=== PATIENT | female | born 1945 | race Caucasian/White ===

== ENCOUNTER → 2016-07-22 | Outpatient (RCR) | payer MEDICARE, OTHER ==
[~2016-07-22] MED LIST: ALEV220C2 PO; IBUP600T26 PO; MULTTAB PO; TYLE650T30 PO; VICO5TAB16 PO; XARE1TAB PO
== END ==
LOC: M PT 07-15 13:10
PROVIDERS: ATTEND Orthopaedic Surgery
DX: Z51.89 Encounter for other specified aftercare (principal); Z96.611 Presence of right artificial shoulder joint
CPT/HCPCS: 97110; 97140; 97161; G8984; G8985

== ENCOUNTER → 2016-08-19 | Outpatient (RCR) | payer MEDICARE, OTHER | LOC: M PT 07-24 14:18 | PROVIDERS: ATTEND Orthopaedic Surgery | DX: Z96.611 Presence of right artificial shoulder joint (principal) | CPT/HCPCS: 97110; 97140; G8984; G8985 ==

== ENCOUNTER 2016-09-18 15:15 | Outpatient (RCR) | payer MEDICARE, OTHER | END 2016-09-19 | LOC: M PT 15:15 | PROVIDERS: ATTEND Orthopaedic Surgery | DX: Z96.611 Presence of right artificial shoulder joint (principal) | CPT/HCPCS: 97110; 97140; G8981; G8982 ==

== ENCOUNTER → 2016-09-22 | Outpatient (REF) | payer MEDICARE, OTHER | LOC: M LAB REF 14:47 | PROVIDERS: ATTEND Nurse Practitioner Family | DX: L08.9 Local infection of the skin and subcutaneous tissue, unspecified (principal) ==

== ENCOUNTER 2016-10-16 13:45 | Outpatient (RCR) | payer MEDICARE, OTHER | END 2016-10-19 | disposition home or self-care (01) | LOC: M PT 13:45 | PROVIDERS: ATTEND Orthopaedic Surgery | DX: Z96.611 Presence of right artificial shoulder joint (principal) | CPT/HCPCS: 97110; 97140; G8984; G8985 ==

== ENCOUNTER 2016-11-11 10:00 | Outpatient (RCR) | payer MEDICARE, OTHER | END 2016-11-11 14:36 | disposition home or self-care (01) | LOC: M PT 10:00 | PROVIDERS: ATTEND Orthopaedic Surgery | DX: Z96.611 Presence of right artificial shoulder joint (principal); Z47.1 Aftercare following joint replacement surgery | CPT/HCPCS: 97110; G8985; G8986 ==

== ENCOUNTER → 2017-11-11 | Outpatient (CLI) | payer MEDICARE, OTHER | LOC: M RAD 09:34 | DX: Z12.31 Encounter for screening mammogram for malignant neoplasm of breast (principal) | CPT/HCPCS: 77067 ==

== ENCOUNTER → 2019-04-13 | Outpatient (CLI) | payer MEDICARE, OTHER ==
--- NOTE | 2019-04-13 11:43 | REP ---
Two-view chest: 04/13/2019. Indication: Cough. Comparison: 04/22/2012. Findings: The lungs are clear. There is no pleural effusion or pneumothorax. The cardiomediastinal silhouette is unremarkable. The patient has undergone right glenohumeral arthroplasty. Impression: Clear lungs. Electronically Signed by Eduard De DO 04/13/2019 11:35 A
== END ==
LOC: M RAD 10:46
PROVIDERS: ATTEND Otolaryngology
DX: R05 Cough (principal)

== ENCOUNTER → 2021-01-02 | Outpatient (CLI) | payer MEDICARE, OTHER ==
--- NOTE | 2021-01-02 16:32 | REPMRS ---
Patient History The patient states she has not had a clinical breast exam in over a year. Patient is postmenopausal and has history of skin cancer. Family history of colorectal cancer at age 50 or over in maternal grandfather, colorectal cancer at age 50 or over in maternal cousin, endometrial cancer at age 50 or over in maternal grandmother, endometrial cancer at age 50 or over in mother, breast cancer at age 50 or over in maternal aunt, breast cancer at age 69 in sister, breast cancer at age 49 in niece, colorectal cancer at age 36 in son. Took hormonal contraceptives for 7 years. Patient states no breast complaints today. Patient has signed MRS History Sheet. Digital Woman Screen Mammo: January 02, 2021 - Exam #: [id number] Bilateral CC and MLO view(s) were taken. Technologist: Emily Arguelles, Technologist Prior study comparison: November 08, 2018, bilateral digital woman screen mammo performed at [facility]. November 11, 2017, bilateral digital mammo screening bilat, performed at [facility]. FINDINGS: There are scattered fibroglandular densities. Screening. Digital screening (2D) mammography was performed bilaterally in the CC and MLO projections. Additionally, breast tomosynthesis (3D mammography) was performed bilaterally in the CC and MLO projections. Todays exam was compared to the prior exam/exams. By history, the patient has no complaints of a palpable breast abnormality or other significant breast complaints. The breasts are unchanged in size and shape. There are no víctor-soft tissue densities or spiculated masses. There is no internal architectural distortion. Once again, stable benign appearing calcifications are seen.There are no suspicious víctor-calcific clusters. Skin thickening or nipple retraction is not present. IMPRESSION: BI-RADS Category 2- Benign Findings. There is no evidence of malignant alteration of the breasts. Followup examination recommended in one year. The Volpara volumetric breast density category is B, there are scattered areas of fibroglandular densities. This mammogram was read with the assistance of [employer],an FDA approved computer aided detection system for mammography. The lifetime Tyrer-Cuzick score is 6,7 % Negative x-ray reports should not delay surgical consultation if a dominant or clinically suspicious mass is present. Not all breast cancers can be identified by mammography. Therefore, we recommend that you continue to perform regular breast self-examination and physical examination and then promptly contact your physician of any concerns or changes. Adenosis and dense breasts may obscure an underlying neoplasm. Assessment: BI-RADS/ACR category 2 mammogram. Benign Findings. Recommendation Routine screening mammogram of both breasts in 1 year. Electronically Signed By: Ovi Agarwal DO 01/02/21 [id number]
== END ==
LOC: M WHC 15:51
PROVIDERS: ATTEND Family Medicine
DX: Z12.31 Encounter for screening mammogram for malignant neoplasm of breast (principal); Z85.3 Personal history of malignant neoplasm of breast

== ENCOUNTER → 2021-05-04 | Outpatient (CLI) | payer MEDICARE, OTHER ==
[~2021-05-04] MED LIST changes: +ATOR1TAB19; +AZEL1SPR3; +CETI-24; +FLUTISP; +XARE20TA
== END ==
LOC: M LABSMTC 10:17
PROVIDERS: ATTEND Anesthesiology
DX: Z01.812 Encounter for preprocedural laboratory examination (principal); Z20.822 Contact with and (suspected) exposure to COVID-19

== ENCOUNTER 2021-05-09 09:46 | Day surgery (SDC) | payer MEDICARE, OTHER ==
[~2021-05-09] VITALS: Ht 154.9 cm; Wt 92.0 kg
[~2021-05-09 09:46] MED LIST changes: +NS 1,000 ML IV ONE
--- OUTSIDE RECORDS SUMMARY | 2021-05-09 10:18 | CCD | Continuity of Care Document ---
Author Author Patty CHARLES M.D. Organization Unknown Address [address] [place] [address] [address] [place] [address] Phone [phone] Problems Description No Information Available Social History Type Date Description Comments Sex Unknown ETOH Use Currently consumes alcohol 6 dri nks a year Tobacco Use Start: Unknown Denies Smoking Recreational Drug Use Denies Drug Use Allergies and adverse reactions Description No Known Drug Allergies Medications Active Medications SIG Qnty Indications Ordering Provide r Date Xarelto 20mg Tablets 1 tab by mouth every day 30tabs Unknown Atorvastatin Calcium 10mg Tablets 1 tab by mouth every day Unknown Cetirizine HCL 10mg Tablets 1 tab by mouth every day Unknown Fluticasone Propionate 50mcg/Act Suspension 2 sprays to each nostril daily Unknown Azelastine HCL (Nasal) 137mcg/Benedict Solution 1 spray in each nostril once a day Unkno wn Immunizations Description No Information Available Vital Signs Date Vital Result Comment 03/06/2021 10:14am BP Systolic 148 mmHg BP Diastolic 74 mmHg Body Temperature 98.3 F Height 60 inches 5'0" Weight 205.50 lb BMI (Body Mass Index) 40.1 kg/m2 [place] Body Weight 100 lb Weight 93.215 kg BSA (Body Surface Area) 1.89 m2 Results Description No Information Available Procedures Description No Information Available Medical Devices Description No Information Available Encounters Description No Information Available Assessments Date Code Description Provider 03/06/2021 Z12.11 Encounter for screening for toni gnant neoplasm of colon Kendrick Charles M.D. 03/06/2021 Z80.0 Family history of malignant neop lasm of digestive organs Kendrick Charles M.D. Plan of Treatment Future Appointment(s):* 05/23/2021 10:45 am - [facility] * 05/09/2021 11:00 am - Kendrick Charles M.D. at [facility] 03/06/2021 - Kendrick Charles M.D.* Z12.11 Encounter for screening for malignant neoplasm of colon* Comments:* Patient was counselled for colonscopy to include indications, risks, and possible benefits. Risks include but are not limited to bleeding, adverse drug reaction, and perforation. Patient was counselled regarding the need for a bowel prep. Patient had the opportunity to ask questions. Patient desires to proceed with colonoscopy. This will be scheduled in [facility]. * Follow up:* Patient will be scheduled for a colonoscopy in [facility]. * Z80.0 Family history of malignant neoplasm of digestive organs Functional Status Description No Information Available Mental Status Description No Information Available Referrals Description No Information Available
--- OUTSIDE RECORDS SUMMARY | 2021-05-09 10:18 | CCD | Continuity of Care Document ---
Author Author Patty LUA M.D. Organization Unknown Address [address] [place] [address] [address] [place] [address] Phone [phone] Problems Description No Information Available Social History Type Date Description Comments Sex Unknown ETOH Use Currently consumes alcohol 6 dri nks a year Tobacco Use Start: Unknown Denies Smoking Recreational Drug Use Denies Drug Use Allergies, Adverse Reactions, Alerts Description No Known Drug Allergies Medications Active Medications SIG Qnty Indications Ordering Provide r Date Xarelto 20mg Tablets 1 tab by mouth every day 30tabs Unknown Atorvastatin Calcium 10mg Tablets 1 tab by mouth every day Unknown Cetirizine HCL 10mg Tablets 1 tab by mouth every day Unknown Fluticasone Propionate 50mcg/Act Suspension 2 sprays to each nostril daily Unknown Azelastine HCL (Nasal) 137mcg/[place] Solution 1 spray in each nostril once a day Unkno wn Immunizations Description No Information Available Vital Signs Date Vital Result Comment 03/06/2021 10:14am BP Systolic 148 mmHg BP Diastolic 74 mmHg Body Temperature 98.3 F Height 60 inches 5'0" Weight 205.50 lb BMI (Body Mass Index) 40.1 kg/m2 [place] Body Weight 100 lb Weight 93.215 kg BSA (Body Surface Area) 1.89 m2 Results Description No Information Available Procedures Description No Information Available Medical Devices Description No Information Available Encounters Description No Information Available Assessments Description No Information Available Plan of Treatment No Information Available Functional Status Description No Information Available Mental Status Description No Information Available Referrals Description No Information Available
--- OUTSIDE RECORDS SUMMARY | 2021-05-09 10:18 | CCD | Continuity of Care Document ---
Author Author Patty DE [facility] Organization Unknown Address [address] [place] [address] Phone [phone] Care Team Providers Care Drag Sawyer Name Role Phone Tawanda Josue MD AUTM [phone] Problems Active Problems Provider Date Posterior rhinorrhea Tomeka Josue MD Onset: 10/06/2018 Chronic sinusitis Tomeka Josue MD Onset: 10/06/2018 Chronic rhinitis Tomeka Josue MD Onset: 10/06/2018 Social History Type Date Description Comments Sex Unknown ETOH Use Rarely consumes alcohol Tobacco Use Start: Unknown Patient has never smoked Allergies and adverse reactions Description No Known Drug Allergies Medications Active Medications SIG Qnty Indications Ordering Provide r Date Fluticasone Propionate 50mcg/Act Suspension 2 sprays to each nostril every day 48gm JUAN Huitron 10/06/2018 Azelastine HCL (Nasal) 0.1% Soluti on 2 sprays in each nostril at at bedtime 90ml JUAN Moreno 10/06/2018 Cetirizine HCL 10mg Tablets 1 by mouth every day 90tabs JUAN Moreno Xarelto Unknown Lipitor Unknown Coq-10 Unknown Immunizations Description No Information Available Vital Signs Date Vital Result Comment 05/07/2021 10:52am Body Temperature 97.5 F 05/11/2020 12:42pm Height 60 inches 5'0" Body Temperature 97.3 F Results Description No Information Available Procedures Description No Information Available Medical Devices Description No Information Available Encounters Description No Information Available Assessments Description No Information Available Plan of Treatment No Information Available Functional Status Description No Information Available Mental Status Description No Information Available Referrals Description No Information Available
--- OUTSIDE RECORDS SUMMARY | 2021-05-09 10:18 | CCD ---
Author Author [facility] Organization [facility] Address Unknown Phone Unavailable Care Team Providers Care Senior Statistical Programmer Name Role Phone Chelsie Josue MD Unavailable Unavailable Chelsie Josue MD Unavailable Unavailable Chelsie Josue MD Unavailable Unavailable Chelsie Josue MD Unavailable Unavailable Chelsie Josue MD Unavailable Unavailable Chelsie Josue MD Unavailable Unavailable Chelsie Josue MD Unavailable Unavailable Chelsie Josue MD Unavailable Unavailable Chelsie Josue MD Unavailable Unavailable Chelsie Josue MD Unavailable Unavailable Chelsie Josue MD Unavailable Unavailable Chelsie Josue MD Unavailable Unavailable Chelsie Josue MD Unavailable Unavailable Chelsie Josue MD Unavailable Unavailable Chelsie Josue MD Unavailable Unavailable Chelsie Josue MD Unavailable Unavailable Chelsie Josue MD Unavailable Unavailable Chelsie Josue MD Unavailable Unavailable Chelsie Josue MD Unavailable Unavailable Chelsie Josue MD Unavailable Unavailable Chelsie Josue MD Unavailable Unavailable Chelsie Josue MD Unavailable Unavailable Chelsie Josue MD Unavailable Unavailable Chelsie Josue MD Unavailable Unavailable Chelsie Josue MD Unavailable Unavailable Chelsie Josue MD Unavailable Unavailable Chelsie Josue MD Unavailable Unavailable Chelsie Josue MD Unavailable Unavailable Chelsie Josue MD Unavailable Unavailable Chelsie Josue MD Unavailable Unavailable Chelsie Josue MD Unavailable Unavailable Chelsie Josue MD Unavailable Unavailable Chelsie Josue MD Unavailable Unavailable Chelsie Josue MD Unavailable Unavailable Chelsie Josue MD Unavailable Unavailable Chelsie Josue MD Unavailable Unavailable Chelsie Josue MD Unavailable Unavailable Chelsie Josue MD Unavailable Unavailable Chelsie Josue MD Unavailable Unavailable Chelsie Josue MD Unavailable Unavailable Chelsie Josue MD Unavailable Unavailable Chelsie Josue MD Unavailable Unavailable Chelsie Josue MD Unavailable Unavailable Chelsie Josue MD Unavailable Unavailable Chelsie Josue MD Unavailable Unavailable Chelsie Josue MD Unavailable Unavailable Chelsie Josue MD Unavailable Unavailable Chelsie Josue MD Unavailable Unavailable Chelsie Josue MD Unavailable Unavailable Chelsie Josue MD Unavailable Unavailable Chelsie Josue MD Unavailable Unavailable Chelsie Josue MD Unavailable Unavailable Chelsie Josue MD Unavailable Unavailable Chelsie Josue MD Unavailable Unavailable Chelsie Josue MD Unavailable Unavailable Chelsie Josue MD Unavailable Unavailable Chelsie Josue MD Unavailable Unavailable Chelsie Josue MD Unavailable Unavailable Chelsie Josue MD Unavailable Unavailable Chelsie Josue MD Unavailable Unavailable Chelsie Josue MD Unavailable Unavailable Chelsie Josue MD Unavailable Unavailable Chelsie Josue MD Unavailable Unavailable Chelsie Josue MD Unavailable Unavailable Chelsie Josue MD Unavailable Unavailable Chelsie Josue MD Unavailable Unavailable Chelsie Josue MD Unavailable Unavailable Chelsie Josue MD Unavailable Unavailable Chelsie Josue MD Unavailable Unavailable Chelsie Josue MD Unavailable Unavailable Chelsie Josue MD Unavailable Unavailable Chelsie Josue MD Unavailable Unavailable Chelsie Josue MD Unavailable Unavailable Chelsie Josue MD Unavailable Unavailable Chelsie Josue MD Unavailable Unavailable Chelsie Josue MD Unavailable Unavailable Chelsie Josue MD Unavailable Unavailable Bg Ellis MD Unavailable Unavailab le RhondaBg MD Unavailable Unavailab le RhondaBg gomez MD Unavailable Unavailab le RhondaBg gomez MD Unavailable Unavailab le RhondaBg MD Unavailable Unavailab le RhondaBg [place] MD Unavailable Unavailab le RhondaBg [place] MD Unavailable Unavailab le RhondaBg MD Unavailable Unavailab le RhondaBg MD Unavailable Unavailab le RhondaBg MD Unavailable Unavailab le RhondaBg [place] MD Unavailable Unavailab le RhondaBg [place] MD Unavailable Unavailab le RhondaBg gomez MD Unavailable Unavailab le RhondaBg gomez MD Unavailable Unavailab le RhondaBg washing[place] MD Unavailable Unavailab le Rhonda, Bg Puente MD Unavailable Unavailab le Rhonda, Bg Puente MD Unavailable Unavailab le Rhonda, Bg Puente MD Unavailable Unavailab le Rhonda, Bg Puente MD Unavailable Unavailab le Rhonda, Bg Puente MD Unavailable Unavailab le Rhonda, Bg Puente MD Unavailable Unavailab le Rhonda, Bg Puente MD Unavailable Unavailab le Rhonda, Bg Puente MD Unavailable Unavailab le Rhonda, Bg Puente MD Unavailable Unavailab le Rhonda, Bg Puente MD Unavailable Unavailab le Rhonda, Bg Puente MD Unavailable Unavailab le Rhonda, Bg Puente MD Unavailable Unavailab le Rhonda, Bg Puente MD Unavailable Unavailab le Rhonda, Bg Puente MD Unavailable Unavailab le Rhonda, Bg Puente MD Unavailable Unavailab le Rhonda, Bg Puente MD Unavailable Unavailab le Rhonda, Bg Puente MD Unavailable Unavailab le Rhonda, Bg Puente MD Unavailable Unavailab le Rhonda, Bg Puente MD Unavailable Unavailab le Rhonda, Bg Puente MD Unavailable Unavailab le Rhonda, Bg Puente MD Unavailable Unavailab le Rhonda, Bg Puente MD Unavailable Unavailab le Rhonda, Bg Puente MD Unavailable Unavailab le Rhonda, Bg Puente MD Unavailable Unavailab le Rhonda, Bg Puente MD Unavailable Unavailab le Rhonda, Bg Puente MD Unavailable Unavailab le Rhnoda, Bg Puente MD Unavailable Unavailab le Rhonda, Bg Puente MD Unavailable Unavailab le Rhonda, Bg Puente MD Unavailable Unavailab le Rhonda, Bg Puente MD Unavailable Unavailab le Rhonda, Bg Puente MD Unavailable Unavailab le Rhonda, Bg Puente MD Unavailable Unavailab le Rhonda, Bg Puente MD Unavailable Unavailab le Rhonda, Bg Puente MD Unavailable Unavailab le Rhonda, Bg Puente MD Unavailable Unavailab le Rhonda, Bg Puente MD Unavailable Unavailab le Rhonda, Bg Puente MD Unavailable Unavailab le Rhonda, Bg Puente MD Unavailable Unavailab le Rhonda, Bg Puente MD Unavailable Unavailab le Rhonda, Bg Puente MD Unavailable Unavailab le Rhonda, Bg Puente MD Unavailable Unavailab le Rhonda, Bg Puente MD Unavailable Unavailab le Rhonda, Bg Puente MD Unavailable Unavailab le Rhonda, Bg Puente MD Unavailable Unavailab le Rhonda, Bg Puente MD Unavailable Unavailab le Rhonda, Bg Puente MD Unavailable Unavailab le Rhonda, Bg Puente MD Unavailable Unavailab le Rhonda, Bg Puente MD Unavailable Unavailab le Rhonda, Bg Puente MD Unavailable Unavailab le Rhonda, Bg Puente MD Unavailable Unavailab le Rhonda, Bg Puente MD Unavailable Unavailab le Rhonda, Bg Puente MD Unavailable Unavailab le Rhonda, Bg Puente MD Unavailable Unavailab le Rhonda, Bg Puente MD Unavailable Unavailab le Rhonda, Bg Puente MD Unavailable Unavailab le Rhonda, Bg Puente MD Unavailable Unavailab le Rhonda, Bg Puente MD Unavailable Unavailab le Rhonda, Bg Puente MD Unavailable Unavailab le Rhonda, Bg Puente MD Unavailable Unavailab le Rhonda, Bg Puente MD Unavailable Unavailab le Rhonda, Bg Puente MD Unavailable Unavailab le Rhonda, Bg Puente MD Unavailable Unavailab le Rhonda, Bg Puente MD Unavailable Unavailab le Rhonda, Bg Puente MD Unavailable Unavailab le Rhonda, Bg Puente MD Unavailable Unavailab le Rhonda, Bg Puente MD Unavailable Unavailab le Rhonda, Bg Puente MD Unavailable Unavailab le Rhonda, Bg Puente MD Unavailable Unavailab le Rhonda, Bg Puente MD Unavailable Unavailab le Rhonda, Bg Puente MD Unavailable Unavailab le Rhonda, Bg Puente MD Unavailable Unavailab le Rhonda, Bg Puente MD Unavailable Unavailab le Rhonda, Bg Puente MD Unavailable Unavailab le Rhonda, Bg Puente MD Unavailable Unavailab le Rhonda, Bg Puente MD Unavailable Unavailab le Rhonda, Bg Puente MD Unavailable Unavailab le Rhonda, Bg Puente MD Unavailable Unavailab le Rhonda, Bg Puente MD Unavailable Unavailab le Rhonda, Bg Puente MD Unavailable Unavailab le Rhonda, Bg Puente MD Unavailable Unavailab le Rhonda, Bg Puente MD Unavailable Unavailab le Rhonda, Bg Puente MD Unavailable Unavailab le Rhonda, Bg Puente MD Unavailable Unavailab le Rhonda, Bg Puente MD Unavailable Unavailab le Rhonda, Bg Puente MD Unavailable Unavailab le Rhonda, Bg Puente MD Unavailable Unavailab le Rhonda, Bg Puente MD Unavailable Unavailab le [place], Amanda SALES REPRESENTATIVE [employer] Unavailable Unavailable [place], Amanda [employer] REPRESENT[employer] [facility] Unavailable Unavailable [place], Amanda SALES REPRESENTATIVE [employer] Unavailable Unavailable [place], Amanda SALES REPRESENT[employer] [facility] Unavailable Unavailable [place], Amanda SALES REPRESENT[employer] [facility] Unavailable Unavailable [place], Amanda SALES REPRESENT[employer] [facility] Unavailable Unavailable [place], Amanda SALES REPRESENT[employer] [facility] Unavailable Unavailable [place], Amanda SALES REPRESENT[employer] [facility] Unavailable Unavailable [place], Amanda SALES REPRESENT[employer] [facility] Unavailable Unavailable [place], Amanda SALES REPRESENT[employer] [facility] Unavailable Unavailable [place], Amanda SALES REPRESENT[employer] [facility] Unavailable Unavailable [place], Amanda SALES REPRESENT[employer] [facility] Unavailable Unavailable [place], Amanda SALES REPRESENT[employer] [facility] Unavailable Unavailable [place], Amanda SALES REPRESENT[employer] [facility] Unavailable Unavailable [place], Amanda SALES REPRESENT[employer]IVE [facility] Unavailable Unavailable [place], Amanda SALES REPRESENT[employer] [facility] Unavailable Unavailable [place], Amanda SALES REPRESENT[employer] [facility] Unavailable Unavailable [place], Amanda SALES REPRESENT[employer] [facility] Unavailable Unavailable [place], Amanda SALES REPRESENT[employer] [facility] Unavailable Unavailable [place], Amanda SALES REPRESENT[employer] [facility] Unavailable Unavailable [place], Amanda SALES REPRESENT[employer] [facility] Unavailable Unavailable [place], Amanda SALES REPRESENT[employer] [facility] Unavailable Unavailable [place], Amanda SALES REPRESENT[employer] [facility] Unavailable Unavailable [place], Amanda SALES REPRESENT[employer]IVE [facility] Unavailable Unavailable [place], Amanda SALES REPRESENTATIVE [facility] Unavailable Unavailable [place], Amanda SALES REPRESENT[employer] [facility] Unavailable Unavailable [place], Amanda SALES REPRESENTATIVE [facility] Unavailable Unavailable [place], Amanda SALES REPRESENT[employer] [facility] Unavailable Unavailable [place], Amanda SALES REPRESENT[employer] [facility] Unavailable Unavailable [place], Amanda SALES REPRESENT[employer]IVE [facility] Unavailable Unavailable [place], Amanda SALES REPRESENT[employer] [facility] Unavailable Unavailable [place], Amanda SALES REPRESENT[employer] [facility] Unavailable Unavailable [place], Amanda SALES REPRESENT[employer] [facility] Unavailable Unavailable [place], Amanda SALES REPRESENT[employer] [facility] Unavailable Unavailable [place], Amanda SALES REPRESENT[employer] [facility] Unavailable Unavailable [place], Amanda SALES REPRESENTAT[employer] [facility] Unavailable Unavailable Hardeep Josue MD Unavailable Unavailable Hardeep Josue MD Unavailable Unavailable Hardeep Josue MD Unavailable Unavailable Hardeep Josue MD Unavailable Unavailable Hardeep Josue MD Unavailable Unavailable Hardeep Josue MD Unavailable Unavailable Hardeep Josue MD Unavailable Unavailable Hardeep Josue MD Unavailable Unavailable Hardeep Josue MD Unavailable Unavailable Hardeep Josue MD Unavailable Unavailable Hardeep Josue MD Unavailable Unavailable Hardeep Josue MD Unavailable Unavailable Hardeep Josue MD Unavailable Unavailable Hardeep Josue MD Unavailable Unavailable Hardeep Josue MD Unavailable Unavailable Hardeep Josue MD Unavailable Unavailable Hardeep Josue MD Unavailable Unavailable Hardeep Josue MD Unavailable Unavailable Hardeep Josue MD Unavailable Unavailable Hardeep Josue MD Unavailable Unavailable WhiteHardeep MD Unavailable Unavailable Hardeep Josue MD Unavailable Unavailable Hardeep Josue MD Unavailable Unavailable Hardeep Josue MD Unavailable Unavailable Hardeep Josue MD Unavailable Unavailable Hardeep Josue MD Unavailable Unavailable Hardeep Josue MD Unavailable Unavailable Hardeep Josue MD Unavailable Unavailable Hardeep Josue MD Unavailable Unavailable Hardeep Josue MD Unavailable Unavailable Hardeep Josue MD Unavailable Unavailable Hardeep Josue MD Unavailable Unavailable Hardeep Josue MD Unavailable Unavailable Hardeep Josue MD Unavailable Unavailable White, W Tomeka MD Unavailable Unavailable White, W Tomeka MD Unavailable Unavailable White, W Tomeka MD Unavailable Unavailable White, W Tomeka MD Unavailable Unavailable White, W Tomeka MD Unavailable Unavailable White, W Tomeka MD Unavailable Unavailable White, W Tomeka MD Unavailable Unavailable Re-disclosure Warning The records that you are about to access may contain information from federally-assisted alcohol or drug abuse programs. If such information is present, then the following federally mandated warning applies: This information has been disclosed to you from records protected by federal confidentiality rules (42 CFR part 2). The federal rules prohibit you from making any further disclosure of this information unless further disclosure is expressly permitted by the written consent of the person to whom it pertains or as otherwise permitted by 42 CFR part 2. A general authorization for the release of medical or other information is NOT sufficient for this purpose. The Federal rules restrict any use of the information to criminally investigate or prosecute any alcohol or drug abuse patient.The records that you are about to access may contain highly sensitive health information, the redisclosure of which is protected by Article 27-F of the [facility] Public Health law. If you continue you may have access to information: Regarding HIV / AIDS; Provided by facilities licensed or operated by the [facility] Office of Mental Health; or Provided by the [facility] Office for People With Developmental Disabilities. If such information is present, then the following [facility] mandated warning applies: This information has been disclosed to you from confidential records which are protected by state law. State law prohibits you from making any further disclosure of this information without the specific written consent of the person to whom it pertains, or as otherwise permitted by law. Any unauthorized further disclosure in violation of state law may result in a fine or retirement sentence or both. A general authorization for the release of medical or other information is NOT sufficient authorization for further disc losure. Family History Family Member Name Family Member Gender Family Member Status Date o f Status Description Data Source(s) Unknown Unknown Problem [facility] ([facility]) Unknown Unknown Problem [facility] ([facility]) Unknown Male Problem [facility] ([facility]) Encounters Encounter Providers Location Date Indications Data Source(s ) Outpatient Attender: Elizabeth Carroll [facility] Main Office 12/18/2020 09:45:00 AM EDT [facility] ([facility]) Outpatient Attender: Tomeka Josue MD [facility], [facility] 05/11/2020 11:45:00 AM EST [facility] ([facility]) Outpatient Attender: Tawanda Parra 04/20 10:00:00 AM EDT [facility] ([facility] ) Outpatient Attender: Kwame Ellis MDReferrer: Tawanda Josue MD 03/20/2020 08:42:27 PM EDT [facility] Recurring Patient Attender: Kwame Ellis MDReferrer: Kwame bass MD 03/19/2020 09:36:34 AM EDT [facility] Immunizations Vaccine Date Status Description Data Source(s) COVID-19 VACC, MRNA(PFIZER)/PF 03/20/2021 12:00:00 AM EDT completed [facility] COVID-19 VACCINE Pfizer 03/20/2021 12:00:00 AM EDT completed [facility] Vaccine Series Complete: YESThis Data wa s Submitted to [facility] [email or web address]. COVID-19 VACCINE Pfizer 08/12/2020 12:00:00 AM EST completed [facility] Vaccine Series Complete: YESThis Data wa s Submitted to [facility] [email or web address]. COVID-19 VACCINE Pfizer 07/24/2020 12:00:00 AM EST completed [facility] Vaccine Series Complete: NOThis Data was Submitted to [facility] [email or web address]. Medications Medication Brand Name Start Date Product Form Dose Route Admi nistrative Instructions Pharmacy Instructions Status Indications Reaction Description Data Source(s) 1.479-0.188- 0.225 gram 04/30/2021 12:00:00 AM EST tablet 24 TAKE TABLETS DIRECTED PER DOCTOR FOR BOWEL PREP TAKE TABLETS DIRECTED PER DOCTOR FOR BOWEL PREP SOLD: 05/03/2021 [facility] SUPREP BOWEL PREP KIT 17.5-3.13-1.6 gram SODIUM, POTASSIUM,M AG SULFATES 04/24/2021 12:00:00 AM EDT recon soln 354 TAKE PER DOCTOR'S BOWEL PREP INSTRUCTIONS TAKE PER DOCTOR'S BOWEL PREP INSTRUCTIONS SOLD: 04/29/2021 [facility] atorvastatin 10 MG Oral Tablet ATORVASTATIN CALCIUM 04/16/2021 1 2:00:00 AM EDT tablet 30 TAKE ONE TABLET BY MOUTH EVERY D AY TAKE ONE TABLET BY MOUTH EVERY DAY SOLD: 04/18/2021 [facility] 875 mg 03/21/2021 12:00:00 AM EDT tablet 20 TAKE 1 TABLET BY MOUTH EVERY 12 HOURS FOR 10 DAYS TAKE 1 TABLET BY MOUTH EVERY 12 HOURS FOR 10 DAYS SOLD : 03/21/2021 [facility] 240 mcg/0.7 mL 03/05/2021 12:00:00 AM EDT syringe 0 INJECT DIRECTED INJECT DIRECTED SOLD: 03/05/2021 [facility] 100,000 unit/gram 12/18/2020 12:00:00 AM EDT cream 60 APPLY TO INGUINAL FOLD TWICE A DAY FOR 2 WEEKS APPLY TO INGUINAL FOLD TWICE A DAY FOR 2 WEEKS SOLD: 12/20/2020 [facility] 20 mg 10/22/2020 12:00:00 AM EDT tablet 90 TAKE ONE TABLET BY MOUTH EVERY DAY TAKE ONE TABLET BY MOUTH EVERY DAY SOLD: 04/18/2021 [facility] 20 mg 10/22/2020 12:00:00 AM EDT tablet 90 TAKE ONE TABLET BY MOUTH EVERY DAY TAKE ONE TABLET BY MOUTH EVERY DAY SOLD: 01/17/2021 [facility] 20 mg 10/22/2020 12:00:00 AM EDT tablet 90 TAKE ONE TABLET BY MOUTH EVERY DAY TAKE ONE TABLET BY MOUTH EVERY DAY SOLD: 10/22/2020 [facility] 10 mg 05/25/2020 12:00:00 AM EST tablet 90 TAKE ONE TABLET BY MOUTH EVERY DAY TAKE ONE TABLET BY MOUTH EVERY DAY SOLD: 02/22/2021 [facility] 137 mcg (0.1 %) 05/25/2020 12:00:00 AM EST aerosol,spray 60 SPRAY 2 SPRAYS IN EACH NOSTRIL ONCE NIGHTLY AT BEDTIME SPRAY 2 SPRAYS IN EACH NOSTRIL ONCE NIGHTLY AT BEDTIME SOLD: 08/22/2020 [facility] Fluticasone propionate 0.05 MG/ACTUAT Metered Dose [facility] 50 mcg/actuation FLUTICASONE PROPIONATE 05/25/2020 12:00:00 AM EST spray,suspension 48 SPRAY 2 SPRAYS IN EACH NOSTRIL ONCE DAILY SPRAY 2 SPRAYS IN EACH NOSTRIL ONCE DAILY SOLD: 02/22/2021 [facility] 10 mg 05/25/2020 12:00:00 AM EST tablet 90 TAKE ONE TABLET BY MOUTH EVERY DAY TAKE ONE TABLET BY MOUTH EVERY DAY SOLD: 05/25/2020 [facility] 10 mg 05/25/2020 12:00:00 AM EST tablet 90 TAKE ONE TABLET BY MOUTH EVERY DAY TAKE ONE TABLET BY MOUTH EVERY DAY SOLD: 11/24/2020 [facility] 137 mcg (0.1 %) 05/25/2020 12:00:00 AM EST aerosol,spray 60 SPRAY 2 SPRAYS IN EACH NOSTRIL ONCE NIGHTLY AT BEDTIME SPRAY 2 SPRAYS IN EACH NOSTRIL ONCE NIGHTLY AT BEDTIME SOLD: 02/16/2021 [facility] 137 mcg (0.1 %) 05/25/2020 12:00:00 AM EST aerosol,spray 60 SPRAY 2 SPRAYS IN EACH NOSTRIL ONCE NIGHTLY AT BEDTIME SPRAY 2 SPRAYS IN EACH NOSTRIL ONCE NIGHTLY AT BEDTIME SOLD: 11/19/2020 [facility] 10 mg 05/25/2020 12:00:00 AM EST tablet 90 TAKE ONE TABLET BY MOUTH EVERY DAY TAKE ONE TABLET BY MOUTH EVERY DAY SOLD: 08/26/2020 [facility] 137 mcg (0.1 %) 05/25/2020 12:00:00 AM EST aerosol,spray 60 SPRAY 2 SPRAYS IN EACH NOSTRIL ONCE NIGHTLY AT BEDTIME SPRAY 2 SPRAYS IN EACH NOSTRIL ONCE NIGHTLY AT BEDTIME SOLD: 05/25/2020 [facility] 50 mcg/actuation 05/25/2020 12:00:00 AM EST spray,suspension 48 SPRAY 2 SPRAYS IN EACH NOSTRIL ONCE DAILY SPRAY 2 SPRAYS IN EACH NOSTRIL ONCE DAILY SOLD: 08/26/2020 [facility] 50 mcg/actuation 05/25/2020 12:00:00 AM EST spray,suspension 48 SPRAY 2 SPRAYS IN EACH NOSTRIL ONCE DAILY SPRAY 2 SPRAYS IN EACH NOSTRIL ONCE DAILY SOLD: 11/24/2020 [facility] 50 mcg/actuation 05/25/2020 12:00:00 AM EST spray,suspension 48 SPRAY 2 SPRAYS IN EACH NOSTRIL ONCE DAILY SPRAY 2 SPRAYS IN EACH NOSTRIL ONCE DAILY SOLD: 05/25/2020 [facility] atorvastatin 10 MG Oral Tablet ATORVASTATIN CALCIUM 04/21/2020 1 2:00:00 AM EDT tablet 30 TAKE ONE TABLET BY MOUTH EVERY D AY TAKE ONE TABLET BY MOUTH EVERY DAY SOLD: 03/20/2021 [facility] atorvastatin 10 MG Oral Tablet ATORVASTATIN CALCIUM 04/21/2020 1 2:00:00 AM EDT tablet 30 TAKE ONE TABLET BY MOUTH EVERY D AY TAKE ONE TABLET BY MOUTH EVERY DAY SOLD: 02/16/2021 [facility] atorvastatin 10 MG Oral Tablet ATORVASTATIN CALCIUM 04/21/2020 1 2:00:00 AM EDT tablet 30 TAKE ONE TABLET BY MOUTH EVERY D AY TAKE ONE TABLET BY MOUTH EVERY DAY SOLD: 12/20/2020 [facility] atorvastatin 10 MG Oral Tablet ATORVASTATIN CALCIUM 04/21/2020 1 2:00:00 AM EDT tablet 30 TAKE ONE TABLET BY MOUTH EVERY D AY TAKE ONE TABLET BY MOUTH EVERY DAY SOLD: 01/17/2021 [facility] atorvastatin 10 MG Oral Tablet ATORVASTATIN CALCIUM 04/21/2020 1 2:00:00 AM EDT tablet 30 TAKE ONE TABLET BY MOUTH EVERY D AY TAKE ONE TABLET BY MOUTH EVERY DAY SOLD: 11/19/2020 [facility] atorvastatin 10 MG Oral Tablet ATORVASTATIN CALCIUM 04/21/2020 1 2:00:00 AM EDT tablet 30 TAKE ONE TABLET BY MOUTH EVERY D AY TAKE ONE TABLET BY MOUTH EVERY DAY SOLD: 10/22/2020 [facility] atorvastatin 10 MG Oral Tablet ATORVASTATIN CALCIUM 04/21/2020 1 2:00:00 AM EDT tablet 30 TAKE ONE TABLET BY MOUTH EVERY D AY TAKE ONE TABLET BY MOUTH EVERY DAY SOLD: 09/24/2020 [facility] atorvastatin 10 MG Oral Tablet ATORVASTATIN CALCIUM 04/21/2020 1 2:00:00 AM EDT tablet 30 TAKE ONE TABLET BY MOUTH EVERY D AY TAKE ONE TABLET BY MOUTH EVERY DAY SOLD: 08/26/2020 [facility] atorvastatin 10 MG Oral Tablet ATORVASTATIN CALCIUM 04/21/2020 1 2:00:00 AM EDT tablet 30 TAKE ONE TABLET BY MOUTH EVERY D AY TAKE ONE TABLET BY MOUTH EVERY DAY SOLD: 05/27/2020 [facility] atorvastatin 10 MG Oral Tablet ATORVASTATIN CALCIUM 04/21/2020 1 2:00:00 AM EDT tablet 30 TAKE ONE TABLET BY MOUTH EVERY D AY TAKE ONE TABLET BY MOUTH EVERY DAY SOLD: 06/28/2020 [facility] atorvastatin 10 MG Oral Tablet ATORVASTATIN CALCIUM 04/21/2020 1 2:00:00 AM EDT tablet 30 TAKE ONE TABLET BY MOUTH EVERY D AY TAKE ONE TABLET BY MOUTH EVERY DAY SOLD: 07/27/2020 [facility] atorvastatin 10 MG Oral Tablet ATORVASTATIN CALCIUM 04/21/2020 1 2:00:00 AM EDT tablet 30 TAKE ONE TABLET BY MOUTH EVERY D AY TAKE ONE TABLET BY MOUTH EVERY DAY SOLD: 04/27/2020 [facility] atorvastatin 10 MG Oral Tablet [Lipitor] Lipitor 04/20/2020 12:00: 00 AM EDT ORAL active [facility] ([facility]) 20 mg 10/25/2019 12:00:00 AM EDT tablet 90 TAKE ONE TABLET BY MOUTH EVERY DAY TAKE ONE TABLET BY MOUTH EVERY DAY SOLD: 07/25/2020 [facility] 20 mg 10/25/2019 12:00:00 AM EDT tablet 90 TAKE ONE TABLET BY MOUTH EVERY DAY TAKE ONE TABLET BY MOUTH EVERY DAY SOLD: 04/27/2020 [facility] 10 mg 06/01/2019 12:00:00 AM EST tablet 30 TAKE ONE TABLET BY MOUTH EVERY DAY TAKE ONE TABLET BY MOUTH EVERY DAY SOLD: 03/19/2020 [facility] 10 mg 06/01/2019 12:00:00 AM EST tablet 30 TAKE ONE TABLET BY MOUTH EVERY DAY TAKE ONE TABLET BY MOUTH EVERY DAY SOLD: 04/16/2020 [facility] Insurance Providers Payer name Policy type / Coverage type Policy ID Covered constitution party ID Covered constitution party's relationship to johnson Policy Johnson Plan Information POMCO [id number] POM[employer] U [id number] Spouse [id number] POM[employer] [id number] Spo [id number] Medicare Natl Govt Servic Medicare Primary [id number] Self [id number] Medicare Natl Govt Servic Medicare Primary [id number] Self MEDICARE [id number] SP [id number] A MEDICARE A [id number] Self [id number] A MEDICARE [id number] SP [id number] Medicare [place] Primary [id number] Self 2 [id number] MEDICARE [id number] Jackelyn [id number] A Medicare C [id number] SELF [id number] A [place] F [id number] SPOUSE [id number] DME Jurisdiction A [place]IC C [id number] SELF [id number] [place] / UMR F [id number] SPOUSE [id number] [place] [id number] [id number] [place] [id number] [id number] UMR F [id number] SELF [id number] UMR F [id number] SPOUSE [id number] Medicare C [id number] SELF [id number] X18 MEDICARE PART A -CLINIC [id number] 18 [id number] [employer] PPO S [id number] S [id number] MEDICARE P [id number] S [id number] A UMR [facility] [id number] [id number] UMR [id number] 01 [id number] MEDICARE PART A -O/P [id number] 18 [id number] MEDICARE PART A -CLINIC [id number] 18 [id number] UMR CO [id number] 01 [id number] UMR CO [id number] 18 [id number] UMR CO UNAVAILABLE 18 UNAVAILA BLE UMR CO [id number] 01 [id number] Umr Commercial [id number] Family Dependent [id number] [place] Primary [id number] Self [id number] Umr Commercial [id number] Family Dependent [id number] Medicare [place] Primary [id number] Self [id number] Umr Commercial [id number] Self [id number] Umr [place] Ppo Medigap Part B [id number] Family Dependent [id number] [place] Ppo Medigap Part B [id number] Family Dependent 910 [employer] -CLINIC [id number] [employer] -O/P [id number] MEDICARE -O/P [id number] 18 [id number] MEDICARE PART B -PHYSICIAN [id number] 18 [id number] Problems, Conditions, and Diagnoses No Information Surgeries/Procedures Procedure Description Date Indications Data Source(s) DESTRUCTION BENIGN LESIONS UP TO 14 12/18/2020 12:00:0 0 AM EDT [facility] ([facility]) OFFICE OUTPATIENT VISIT 25 MINUTES 12/18/2020 12:00:00 AM EDT [facility] ([facility]) Results ID Date Data Source [id number] 03/21/2021 12:00:00 AM EDT [facility] Name Value Range Interpretation Code Description Data Adri rce(s) Supporting Document(s) SARS-CoV2 Rapid Antigen Negative [facility] and [facility] by [facility]. ID Date Data Source [id number] 06/20/2020 12:00:00 AM EST [facility] Name Value Range Interpretation Code Description Data Adri rce(s) Supporting Document(s) SARS-CoV2 Rapid Antigen [facility] This lab was ordered by [facility] and reported by [facility]. ID Date Data Source [id number] 04/19/2020 09:54:00 AM EDT [facility] ([facility]) Name Value Range Interpretation Code Description Data Adri rce(s) Supporting Document(s) Cholesterol [Mass/volume] in Serum or Plasma 227 mg/dL 131-200 [facility] ([facility]) Cholesterol in HDL [Mass/volume] in Serum or Plasma 53 mg/dL 35-60 [facility] ([facility]) Cholesterol in LDL [Mass/volume] in Serum or Plasma by calcu lation 153 CALC 50-159 [facility] ([facility]) Triglyceride [Mass/volume] in Serum or Plasma 103 mg/dL 30-150 [facility] ([facility]) ID Date Data Source [id number] 04/19/2020 09:54:00 AM EDT [facility] ([facility]) Name Value Range Interpretation Code Description Data Adri rce(s) Supporting Document(s) Urea nitrogen [Mass/volume] in Serum or Plasma 21 mg/dL 7-18 [facility] ([facility]) Glucose [Mass/volume] in Serum or Plasma 92 mg/dL 74-99 [facility] ([facility]) 100-125 mg/dL PRE-DIABETES/FASTING >126 mg/dL DIABETES/FASTING Sodium [Moles/volume] in Serum or Plasma 140 meq/L 136-145 [facility] ([facility]) Potassium [Moles/volume] in Serum or Plasma 4.1 meq/L 3.5-5.1 [facility] ([facility]) Creatinine 0.8 mg/dL 0.6-1.3 [facility] ([facility]) Calcium [Mass/volume] in Serum or Plasma 8.8 mg/dL 8.5-10.1 [facility] ([facility]) Carbon dioxide, total [Moles/volume] in Serum or Plasma 31 meq/L 21 -32 [facility] ([facility]) Chloride [Moles/volume] in Serum or Plasma 103 meq/L 98-107 [facility] Alkaline phosphatase isoenzyme [Units/volume] in Serum or Pl asma 73 mg/dL 46-116 [facility] ([facility]) Aspartate aminotransferase [Enzymatic activity/volume] in Serum or Plasma 13 U/L 15-37 [facility] ([facility] ) Albumin [Mass/volume] in Serum or Plasma 3.8 g/dL 3.4-5.0 [facility] ([facility]) Alanine aminotransferase [Enzymatic activity/volume] in Seru m or Plasma 15 U/L 12-78 [facility] ([facility]) Total Bilirubin 0.8 mg/dL 0.2-1.0 [facility] ([facility]) Glomerular filtration rate/1.73 sq M pre dicted among non-blacks [Volume Rate/Area] in Serum or Plasma by Creatinine-based formula (MDRD) Laboratory test result [facility] ([facility] ) A/G Ratio 1.09 CALC 1.00-1.90 [facility]) Proteinase 3 Ab [Units/volume] in Serum 7.3 g/dL 6.4-8.2 [facility] ([facility]) Glomerular filtration rate/1.73 sq M pre dicted among blacks [Volume Rate/Area] in Serum or Plasma by Creatinine-based formula (MDRD) Laboratory test result [facility]) <content>CHRONIC KIDNEY DISEASE STAGING PER NKF</content>
<content></content>
<content>STAGE I & II GFR >= 60 NORMAL TO MILDLY DECREASED</content>
<content>STAGE III GFR 30-59 MODERATELY DECREASED</content>
<content>STAGE IV GFR 15-29 SEVERELY DECREASED</content>
<content>STAGE V GFR <15 VERY LITTLE GFR LEFT</content>
<content>ESRD GFR <15 ON ENGAGEMENT MANAGER</content>
<content></content> ID Date Data Source [id number] 04/19/2020 09:54:00 AM EDT [facility] Name Value Range Interpretation Code Description Data Adri rce(s) Supporting Document(s) Hemoglobin [Mass/volume] in Blood 13.8 g/dL 12.0-18.0 [facility] ([facility]) Leukocytes [#/volume] in Blood by Automated count 6.3 x10*3/UL 4.1-10 .9 [facility] ([facility]) Erythrocytes [#/volume] in Blood by Automated count 4.65 x10*6/UL 4.2 0-6.30 [facility] ([facility]) MCH 29.6 pg 26.0-32.0 [facility]) MCV 85.8 fL 80.0-97.0 [facility] ([facility]) Hematocrit [Volume Fraction] of Blood by Automated count 39.9 % 3 7.0-51.0 [facility] ([facility]) Erythrocyte distribution width [Ratio] by Automated count 12.9 % 11.6-13.7 [facility] ([facility]) Platelets [#/volume] in Blood by Automated count 283 x10*3/UL 140-440 [facility] ([facility]) MCHC 34.6 g/dL 31.0-38.0 [facility]) Lymph % 49.1 % 10.0-58.5 [facility]) MPV 7.7 FL 7.8-11.0 [facility]) Mid % 7.3 % 1.7-9.3 [facility]) Lymph # 3.1 x10*3/UL 0.6-4.1 [facility] ([facility]) Neut % 43.6 % 37.0-92.0 [facility]) Mid # 0.5 x10*3/UL 0.1-0.6 [facility] ([facility]) Neut # 2.7 x10*3/UL 2.0-7.8 [facility] ([facility]) ID Date Data Source [id number] 03/20/2020 08:42:27 PM EDT [facility], PCName: Patty FrazierOB: 1945Provider: Rhonda KwameBEATA: 03/19/2020 History of Present IllnessCHIEF COMPLAINTFollow- up of right shoulder arthroplasty and bilateral knee arthroplasties. HISTORY OF PRESENT ILLNESSMs. Toussaint is a 74-year-old female who presents for routine follow-up evaluation of right shoulder arthroplasty and bilateral knee arthroplasties. The patient notes she is doing well in regard to her shoulder and bilateral knees. She denies issues with range of motion. She denies neurologic issues. Results/DataTwo views of the right shoulder were ordered, obtained, and interpreted today in the office for the indication of pain/dysfunction. These show no loosening, wear, or malalignment. Two views of the right knee were ordered, obtained, and interpreted today in the office for the indication of pain/dysfunction. These show no loosening, wear, or malalignment. Two views of the left knee were ordered, obtained, and interpreted today in the office for the indication of pain/dysfunction. These show no loosening, wear, or malalignment. AssessmentASSESSMENTDoing very well 3 years status post right total shoulder arthroplasty and status post both right and left knee arthroplasties. Plan X-Ray I Knee - 2 views (XRays were ordered, obtained and interpreted today in theoffice. Indication: pain/dysfunction.); Status:Complete; Done: [id number] Perform:SOS05; Due:02Apr2020; Last Updated By:Brenda Olivarez; 03/19/2020 9:48:33 AM;Ordered; For:Pain in both knees, Right shoulder pain; Ordered By:Kwame Ellis;Weight Bearing Status : Weight bearingLaterality: : Bilateral X-Ray I Shoulder - 2 views (XRays were ordered, obtained and interpreted today in theoffice. Indication: pain/dysfunction.); Status:Complete; Done: [id number] Perform:SOS05; Due:02Apr2020; Last Updated By:Brenda Olivarez; 03/19/2020 9:47:46 AM;Ordered; For:Right shoulder pain; Ordered By:Kwame Ellis;Laterality: : Right PLANThe patient is doing very well 3 years status post right total shoulder arthroplasty and status post both right and left knee arthroplasties. At this point, she denies any complaints or issues. All questions were answered. She will follow up for routine check of all in 2 years. The patient understands and agrees with this plan. Scribed by Bettina Cummins on 03/19/2020 at 08:15 PM for Kwame Ellis Signatures Electronically signed by : Bettina Cummins MA; Mar 19 2020 8:15PM EST (Author) Electronically signed by : Kwame Ellis M.D.; Mar 20 2020 8:42PM EST Name Value Range Interpretation Code Description Data Adri rce(s) Supporting Document(s) Procedure Social History No Information Vital Signs ID Date Data Source UNK Name Value Range Interpretation Code Description Data Source(s) Body temperature 97.5 [degF] 97.5 [degF] [facility] ([facility]) Systolic blood pressure 148 mm[Hg] 148 mm[Hg] M GARRY ([facility]) Diastolic blood pressure 74 mm[Hg] 74 mm[Hg] [facility] ([facility]) Body temperature 98.3 [degF] 98.3 [degF] [facility] ([facility]) Body height 60 [in_i] 60 [in_i] [facility] ([facility]) 5'0" Body weight 205.50 [lb_av] 205.50 [lb_av] MEDEN T ([facility]) Body mass index (BMI) [Ratio] 40.1 kg/m2 40.1 k g/m2 [facility] ([facility]) Jackson body weight 100 [lb_av] 100 [lb_av] MEDEN T ([facility]) Body weight 93.215 kg 93.215 kg [facility] ([facility]) Body surface area Derived from formula 1.89 m2 1.89 m2 [facility] ([facility]) Systolic blood pressure 130 mm[Hg] 130 mm[Hg] M EDENT ([facility]) Diastolic blood pressure 76 mm[Hg] 76 mm[Hg] [facility] ([facility]) Respiratory rate 17 /min 17 /min [facility] ( [facility]) Body height 60 [in_i] 60 [in_i] [facility] ([facility]) 5'0" Body weight 180.00 [lb_av] 180.00 [lb_av] MEDEN T ([facility]) Body temperature 97.7 [degF] 97.7 [degF] [facility] ([facility]) Respiratory rate 20 /min 20 /min [facility] ( [facility]) Body height 60 [in_i] 60 [in_i] [facility] ([facility] 5'0" Body temperature 97.3 [degF] 97.3 [degF] [facility] ([facility] Heart rate 74 /min 74 /min [facility] ([facility]) Body height 59 [in_i] 59 [in_i] [facility] ([facility]) 4'11" Body weight 208.00 [lb_av] 208.00 [lb_av] MEDEN T ([facility]) Body mass index (BMI) [Ratio] 42.0 kg/m2 42.0 k g/m2 RA[facility] ([facility]) Systolic blood pressure 140 mm[Hg] 140 mm[Hg] M GARRY ([facility]) Diastolic blood pressure 80 mm[Hg] 80 mm[Hg] [facility] ([facility])
[2021-05-09] MEDS ORDERED: propofoL 200 MG/20 ML VIAL As Ordered ONE (10:46)
[2021-05-09] MEDS ORDERED: LIDOCAINE 1% MDV 20ML VIAL As Ordered ONE (10:46)
--- NOTE | 2021-05-09 11:57 | ROOR ---
Patient Name: Patty Cerrato Procedure Date: 05/09/2021 11:10 AM Date of : 1945 Age: 75 Room: [facility] Gender: Female Note Status: Finalized Procedure: Colonoscopy Indications: Screening for colorectal malignant neoplasm, Last colonoscopy: October 2009 Providers: Kendrick Charles MD Referring MD: Tawanda Josue MD Requesting Provider: Medicines: Monitored Anesthesia Care Complications: No immediate complications. Procedure: Pre-Anesthesia Assessment: - Prior to the procedure, a History and Physical was performed, and patient medications and allergies were reviewed. The patient is competent. The risks and benefits of the procedure and the sedation options and risks were discussed with the patient. All questions were answered and informed consent was obtained. Patient identification and proposed procedure were verified by the physician, the nurse and the licensed nuclear operator in the procedure room. Mental Status Examination: alert and oriented. Prophylactic Antibiotics: The patient does not require prophylactic antibiotics. Prior Anticoagulants: The patient has taken Xarelto (rivaroxaban), last dose was 3 days prior to procedure. ASA Grade Assessment: III - A patient with severe systemic disease. After reviewing the risks and benefits, the patient was deemed in satisfactory condition to undergo the procedure. The anesthesia plan was to use monitored anesthesia care (MAC). Immediately prior to administration of medications, the patient was re-assessed for adequacy to receive sedatives. The heart rate, respiratory rate, oxygen saturations, blood pressure, adequacy of pulmonary ventilation, and response to care were monitored throughout the procedure. The physical status of the patient was re-assessed after the procedure. The Colonoscope was introduced through the anus and advanced to the cecum, identified by appendiceal orifice and ileocecal valve. The colonoscopy was performed without difficulty. The patient tolerated the procedure well. The quality of the bowel preparation was excellent. Findings: The perianal and digital rectal examinations were normal. A 10 mm polyp was found in the hepatic flexure. The polyp was sessile. The polyp was removed with a hot snare. Resection and retrieval were complete. A few small-mouthed diverticula were found in the descending colon, transverse colon and hepatic flexure. Many medium-mouthed diverticula were found in the sigmoid colon. Impression: - One 10 mm polyp at the hepatic flexure, removed with a hot snare. Resected and retrieved. - Diverticulosis in the descending colon, in the transverse colon and at the hepatic flexure. - Diverticulosis in the sigmoid colon. Recommendation: - Discharge patient to home. - Resume previous diet. - Continue present medications. - Await pathology results. - Return to endoscopist as previously scheduled. Procedure Code(s): --- Professional --- 12006, Colonoscopy, flexible; with removal of tumor(s), polyp(s), or other lesion(s) by snare technique Diagnosis Code(s): --- Professional --- Z12.11, Encounter for screening for malignant neoplasm of colon K63.5, Polyp of colon K57.30, Diverticulosis of large intestine without perforation or abscess without bleeding CPT copyright 2019 [employer]. All rights reserved. The codes documented in this report are preliminary and upon certified medical records coder review may be revised to meet current compliance requirements. Kendrick Charles MD Kendrick Charles MD 05/09/2021 11:57:27 AM Electronically signed by Kendrick Charles MD Number of Addenda: 0 Note Initiated On: 05/09/2021 11:10 AM Estimated Blood Loss: Estimated blood loss: none.
[2021-05-09 12:15] VITALS: BP 114/59
== END 2021-05-09 12:30 | disposition home or self-care (01) ==
LOC: M OPP 09:46
PROVIDERS: ATTEND Surgery
DX: Z12.11 Encounter for screening for malignant neoplasm of colon (principal); K63.5 Polyp of colon; K57.30 Diverticulosis of large intestine without perforation or abscess without bleeding; Z79.899 Other long term (current) drug therapy; Z88.8 Allergy status to other drugs, medicaments and biological substances; Z86.711 Personal history of pulmonary embolism

== ENCOUNTER → 2022-01-10 | Outpatient (CLI) | payer MEDICARE, OTHER ==
[~2022-01-10] MED LIST changes: -NS 1,000 ML IV ONE
== END ==
LOC: M WHC 10:27
PROVIDERS: ATTEND Family Medicine
DX: Z12.31 Encounter for screening mammogram for malignant neoplasm of breast (principal); M81.0 Age-related osteoporosis without current pathological fracture; M85.89 Other specified disorders of bone density and structure, multiple sites

== ENCOUNTER 2022-05-28 20:03 | Emergency (ER) | payer MEDICARE, OTHER ==
[~2022-05-28] VITALS: Ht 152.4 cm; Wt 83.2 kg
[2022-05-28 23:53] VITALS: BP 151/80
== END 2022-05-29 00:20 | disposition home or self-care (01) ==
LOC: M ED 20:03
DX: M79.652 Pain in left thigh (principal); Z86.711 Personal history of pulmonary embolism; Z86.718 Personal history of other venous thrombosis and embolism; Z87.442 Personal history of urinary calculi; Z79.01 Long term (current) use of anticoagulants; Z88.8 Allergy status to other drugs, medicaments and biological substances

== ENCOUNTER → 2022-09-18 | Outpatient (REF) | payer MEDICARE, OTHER | LOC: M LAB REF 16:07 | PROVIDERS: ATTEND Physician Assistant | DX: J02.9 Acute pharyngitis, unspecified (principal) ==

== ENCOUNTER 2022-11-18 14:03 | Outpatient (RCR) | payer MEDICARE, OTHER ==
[~2022-11-18 14:03] MED LIST changes: +FLUT50SP17; -FLUTISP
== END 2022-11-19 ==
LOC: M PT 14:03
PROVIDERS: ATTEND Family Medicine
DX: M76.32 Iliotibial band syndrome, left leg (principal)

== ENCOUNTER 2022-12-17 11:45 | Outpatient (RCR) | payer MEDICARE, OTHER | END 2022-12-19 | LOC: M PT 11:45 | PROVIDERS: ATTEND Family Medicine | DX: M76.32 Iliotibial band syndrome, left leg (principal) ==

== ENCOUNTER → 2022-12-22 | Outpatient (CLI) | payer MEDICARE, OTHER | LOC: M RAD 13:11 | PROVIDERS: ATTEND Physician Assistant Medical | DX: M16.12 Unilateral primary osteoarthritis, left hip (principal) ==

== ENCOUNTER 2023-01-05 10:43 | Outpatient (RCR) | payer MEDICARE, OTHER | END 2023-01-19 | LOC: M PT 10:43 | PROVIDERS: ATTEND Family Medicine | DX: M76.32 Iliotibial band syndrome, left leg (principal) ==

== ENCOUNTER → 2023-02-12 | Outpatient (CLI) | payer MEDICARE, OTHER ==
[2023-02-12 15:49] LABS: BASO % 0.5 % (0.0-1.0); EOS # 0.1 10^3/uL (0.0-0.5); EOS % 2.1 % (0.0-3.0); HEMATOCRIT 39.6 % (36.0-47.0); HEMOGLOBIN 12.6 g/dl (12.0-15.5); LYMPH % 34.1 % (24.0-44.0); MEAN CORPUSCULAR HEMOGLOBIN 29.6 pg (27.0-33.0); MEAN CORPUSCULAR HGB CONC 31.8 g/dl (32.0-36.5); MEAN CORPUSCULAR VOLUME 93.2 fl (80.0-96.0); MONO # 0.4 10^3/uL (0.0-0.8); MONO % 7.4 % (2.0-8.0); NEUTROPHILS # 3.2 10^3/uL (1.5-8.5); NEUTROPHILS % 55.4 % (36.0-66.0); PLATELET COUNT, AUTOMATED 283 10^3/uL (150-450); RED BLOOD COUNT 4.25 10^6/uL (4.00-5.40); WHITE BLOOD COUNT 5.8 10^3/uL (4.0-10.0)
[2023-02-12 16:10] LABS: ALBUMIN 3.6 G/DL (3.2-5.2)
[2023-02-12 16:17] LABS: PERCENT SATURATION 26.7 % (13.2-45.0)
[2023-02-12 16:20] LABS: FERRITIN 76.1 NG/ML (7.3-270.7)
== END ==
LOC: M PLALAB 13:41
PROVIDERS: ATTEND Orthopaedic Surgery
DX: M16.12 Unilateral primary osteoarthritis, left hip (principal); M25.552 Pain in left hip

== ENCOUNTER 2023-02-17 10:45 | Outpatient (RCR) | payer MEDICARE, OTHER | END 2023-02-19 | LOC: M PT 10:45 | PROVIDERS: ATTEND Family Medicine | DX: M76.32 Iliotibial band syndrome, left leg (principal) ==

== ENCOUNTER → 2023-03-02 | Outpatient (REF) | payer MEDICARE, OTHER ==
[2023-03-02 19:08] LABS: AMORPHOUS SEDIMENT MODERATE (NEGATIVE); APPEARANCE, URINE TURBID (CLEAR); BACTERIA, URINE AUTO NEGATIVE (NEGATIVE); BILIRUBIN, URINE AUTO NEGATIVE (NEGATIVE); BLOOD, URINE BLOOD NEGATIVE (NEGATIVE); CALCIUM OXALATE CRYSTALS LARGE; COLOR, URINE YELLOW (YELLOW); GLUCOSE, URINE (UA) AUTO NEGATIVE (NEGATIVE); KETONE, URINE AUTO TRACE mg/dL (NEGATIVE); LEUKOCYTE ESTERASE, URINE AUTO TRACE (NEGATIVE); MUCUS, URINE LARGE (NEGATIVE); NITRITE, URINE AUTO NEGATIVE (NEGATIVE); PROTEIN, URINE AUTO NEGATIVE (NEGATIVE); RBC, URINE AUTO 3 /HPF (0-3); SPECIFIC GRAVITY URINE AUTO 1.028 (1.002-1.035); SQUAMOUS EPITHELIAL CELL UR AU 7 /HPF (0-6); WBC, URINE AUTO 0 /HPF (0-3)
[2023-03-02 19:17] LABS: INR 2.7; PROTHROMBIN TIME 28.1 SECONDS (12.5-14.5)
[2023-03-02 19:18] LABS: PARTIAL THROMBOPLASTIN TIME 41.4 SECONDS (24.8-34.2)
== END ==
LOC: M LAB REF 17:44
PROVIDERS: ATTEND Family Medicine
DX: Z01.818 Encounter for other preprocedural examination (principal); Z79.899 Other long term (current) drug therapy; Z86.711 Personal history of pulmonary embolism

== ENCOUNTER → 2023-04-21 | Outpatient (RCR) | payer MEDICARE, OTHER | LOC: M PT 10:16 | PROVIDERS: ATTEND Orthopaedic Surgery | DX: Z96.642 Presence of left artificial hip joint (principal) ==

== ENCOUNTER → 2023-05-21 | Outpatient (RCR) | payer MEDICARE, OTHER | LOC: M PT 04-28 10:04 | PROVIDERS: ATTEND Orthopaedic Surgery | DX: Z96.642 Presence of left artificial hip joint (principal) ==

== ENCOUNTER 2023-06-11 10:00 | Outpatient (RCR) | payer MEDICARE, OTHER ==
[~2023-06-11 10:00] MED LIST changes: -FLUT50SP17; +FLUTISP
== END 2023-06-21 ==
LOC: M PT 10:00
PROVIDERS: ATTEND Orthopaedic Surgery
DX: M25.552 Pain in left hip (principal); Z96.642 Presence of left artificial hip joint

== ENCOUNTER → 2023-09-18 | Outpatient (CLI) | payer MEDICARE, OTHER | LOC: M WHC 09:24 | PROVIDERS: ATTEND Family Medicine | DX: Z12.31 Encounter for screening mammogram for malignant neoplasm of breast (principal); R92.313 Mammographic fatty tissue density, bilateral breasts ==

== ENCOUNTER → 2024-09-22 | Outpatient (CLI) | payer MEDICARE, OTHER | LOC: M WHC 13:14 | PROVIDERS: ATTEND Family Medicine | DX: Z12.31 Encounter for screening mammogram for malignant neoplasm of breast (principal); R92.313 Mammographic fatty tissue density, bilateral breasts ==

== ENCOUNTER → 2025-02-23 | Outpatient (CLI) | payer MEDICARE, OTHER | LOC: M WHC 10:25 | PROVIDERS: ATTEND Family Medicine | DX: M85.851 Other specified disorders of bone density and structure, right thigh (principal) ==